=== PATIENT | male | born 1990 ===

== ENCOUNTER 2017-04-11 12:58 | Emergency (ER) | payer BC ==
[2017-04-11 13:24] VITALS: BP 146/77; PULSE 68; RESP 20; TEMP 97; O2SAT 99
--- NOTE | 2017-04-11 14:41 | ED PDOC ---
Lower Extremity Pain/Injury Time Seen by Provider: 04/11/17 13:44 Chief Complaint (Nursing): Lower Extremity Problem/Injury Chief Complaint (Provider): Lower Extremity Problem History Per: Patient History/Exam Limitations: no limitations Onset/Duration Of Symptoms: Hrs (since last night) Current Symptoms Are (Timing): Still Present Additional Complaint(s): 26 year old male presents to ED with complaints of right knee pain since last night and has no past medical history. Notes that he felt his right knee "give out" while walking and has been experiencing pain on both sides of his knee since onset. (-) numbness, tingling, or blunt trauma. PCP: Kirk Clarke - Knee Description Of Injury: Other ("gave out") Past Medical History Reviewed: Historical Data, Nursing Documentation, Vital Signs Vital Signs: Last Vital Signs Temp 97 F L 04/11/17 13:22 Pulse 68 04/11/17 13:22 Resp 20 04/11/17 13:22 BP 146/77 04/11/17 13:22 Pulse Ox 99 04/11/17 13:22 - Medical History PMH: No Chronic Diseases - Family History Family History: States: No Known Family Hx - Allergies Allergies/Adverse Reactions: Allergies Allergy/AdvReac Type Severity Reaction Status Date / Time No Known Allergies Allergy Verified 04/11/17 13:24 Wells Criteria for PE - Wells Criteria for Pulmonary Embolism Heart Rate >100: No Previous, objectively diagnosed PE or DVT: No Hemoptysis: No Malignancy w/treatment within 6 months, or palliative: No Total Score: 0 Review of Systems ROS Statement: Except As Marked, All Systems Reviewed And Found Negative Musculoskeletal: Positive for: Leg Pain (right knee pain on both medial and lateral aspects) Physical Exam - Reviewed Nursing Documentation Reviewed: Yes Vital Signs Reviewed: Yes - Physical Exam Appears: Positive for: Non-toxic, No Acute Distress Skin: Positive for: Normal Color, Warm, Dry Respiratory: Negative for: Respiratory Distress Pulses-Dorsalis Pedis (L): 2+ Pulses-Dorsalis Pedis (R): 2+ Extremity: Positive for: Normal ROM. Negative for: Tenderness, Deformity, Swelling Neurologic/Psych: Positive for: Alert, Oriented. Negative for: Motor/Sensory Deficits - ECG O2 Sat by Pulse Oximetry: 99 (RA) Pulse Ox Interpretation: Normal - Radiology X-Ray: Interpreted by Me (Knee x-ray) X-Ray Interpretation: No Acute Disease - Progress ED Course And Treament: Knee bakari wrapped by molding process technician. Medical Decision Making Medical Decision Makin Initial impression: knee injury Initial plan: * XR KNEE RT * Toradol 30mg IM * Re-eval Scribe Attestation: Documented by Urmila Menon, acting as a scribe for Ra Novoa PA-C. Provider Scribe Attestation: All medical record entries made by the Scribe were at my direction and personally dictated by me. I have reviewed the chart and agree that the record accurately reflects my personal performance of the history, physical exam, medical decision making, and the department course for this patient. I have also personally directed, reviewed, and agree with the discharge instructions and disposition. Disposition - Clinical Impression Clinical Impression: Knee injury - Patient ED Disposition Is Patient to be Admitted: No - Disposition Referrals: Collins Dover MD [Staff Provider] - Disposition: Routine/Home Disposition Time: 14:49 Condition: STABLE Instructions: Knee Sprain (ED), RICE Therapy (ED) Forms: [facility] (Yi) Print Language: PALAUAN
--- NOTE | 2017-04-11 15:13 | RAD ---
PROCEDURE: Right Knee Radiographs. HISTORY: pain COMPARISON: None. FINDINGS: BONES: Normal. No fracture. JOINTS: Normal. No osteoarthritis. JOINT EFFUSION: Suspect small joint effusion OTHER FINDINGS: None. IMPRESSION: No evidence of acute displaced fracture nor dislocation. Suspect small suprapatellar joint effusion.
== END 2017-04-11 15:16 | disposition home or self-care (01) ==
LOC: H.ER 12:58
DX: S89.91XA Unspecified injury of right lower leg, initial encounter (principal); X50.9XXA Other and unspecified overexertion or strenuous movements or postures, initial encounter; Y92.89 Other specified places as the place of occurrence of the external cause
CPT/HCPCS: 73562; 96372; 99282; J1885